=== PATIENT | male | born 1990 | race American Indian/Alaskan Native ===

== ENCOUNTER 2018-06-20 10:09 | Emergency (ER) | payer SELFPAY ==
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
[2018-06-20 11:47] LABS: Basophils % (Auto) 0.6 % (0.0-1.8); Hematocrit 38.6 % (35.5-45.6); Lymphocytes # (Auto) 1.4 K/mm3 (1.2-5.4); Lymphocytes % (Auto) 21.9 % (13.4-35.0); Mean Corpuscular HGB Conc 34 % (32-34); Mean Corpuscular Volume 97 fl (84-94); Monocytes # (Auto) 0.4 K/mm3 (0.0-0.8); Monocytes % (Auto) 5.9 % (0.0-7.3); Platelet Count 180 K/mm3 (140-440); Red Blood Count 3.97 M/mm3 (3.65-5.03); Red Cell Distribution Width 14.1 % (13.2-15.2)
[2018-06-20 12:03] LABS: Alanine Aminotransferase 30 units/L (7-56); BUN/Creatinine Ratio 12; Blood Urea Nitrogen 14 mg/dL (9-20); Calcium 9.1 mg/dL (8.4-10.2); Hemolysis Index 35
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
[2018-06-20] MEDS ORDERED: NORCO 5/325 PO ONE (13:53)
[2018-06-20] MEDS ORDERED: IBUPROFEN PO ONE (13:53)
[2018-06-20 14:32] VITALS: BP 112/70
== END 2018-06-20 14:30 ==
LOC: ED 10:09
DX: S80.01XA Contusion of right knee, initial encounter (principal); S29.012A Strain of muscle and tendon of back wall of thorax, initial encounter; S09.90XA Unspecified injury of head, initial encounter; R10.9 Unspecified abdominal pain; V89.2XXA Person injured in unspecified motor-vehicle accident, traffic, initial encounter; Y93.89 Activity, other specified; Y92.89 Other specified places as the place of occurrence of the external cause; Y99.8 Other external cause status
CPT/HCPCS: 36415; 70450; 72072; 72125; 73562; 74177; 80053; 85025; 86850; 86900; 86901; 99284; Q9967